=== PATIENT | male | born 2000 | race Caucasian/White ===

== ENCOUNTER 2020-07-05 21:00 | Emergency (ER) | payer OTHER ==
[~2020-07-05] VITALS: Ht 172.7 cm; Wt 95.5 kg
[2020-07-05 21:45] LABS: BASOPHILS % (AUTO) 0.4 % (0.0-2.0); EOSINOPHILS % (AUTO) 1.1 % (1.0-6.0); HEMATOCRIT 44.3 % (41-53); HEMOGLOBIN 14.4 g/dL (13.5-17.5); LYMPHOCYTES # (AUTO) 3.2 K/uL (1.0-4.8); LYMPHOCYTES % (AUTO) 47.2 % (22.0-44.0); MEAN CORPUSCULAR HEMOGLOBIN 29.7 pg (26.0-34.0); MEAN CORPUSCULAR HGB CONC 32.6 G/dL (31.0-37.0); MEAN CORPUSCULAR VOLUME 91 fL (80-100); MONOCYTES # (AUTO) 0.7 K/uL (0.1-1.0); MONOCYTES % (AUTO) 9.6 % (2.0-9.0); NEUTROPHILS # (AUTO) 2.8 K/uL (1.8-7.7); NEUTROPHILS % (AUTO) 41.7 % (40.0-70.0); PLATELET COUNT (AUTO) 271 K/uL (150-450); RED BLOOD CELL COUNT(AUTO) 4.86 MIL/uL (4.50-5.90); RED CELL DISTRIBUTION WIDTH 15.1 % (11.5-14.5)
[2020-07-05 22:02] LABS: ANION GAP 9 mmol/L (8-16); CALCIUM, TOTAL 9.3 mg/dL (8.8-10.5); CARBON DIOXIDE 29 mmol/L (22-29); CHLORIDE 105 mmol/L (98-107); CREATININE 0.96 mg/dL (0.60-1.30); GLOMERULAR FILTR. RATE CALC > 60 mL/min (>60); GLUCOSE,RANDOM 95 mg/dL (70-110); POTASSIUM 3.6 mmol/L (3.5-5.1); SODIUM SERUM 143 mmol/L (136-145); UREA NITROGEN, BLOOD 7 mg/dL (7-18)
[2020-07-05 22:08] LABS: ALANINE AMINOTRANSFERASE 38 U/L (12-78); ALBUMIN 4.5 g/dL (3.4-5.0); ALKALINE PHOSPHATASE 87 U/L (46-116); ASPARTATE AMINOTRANSFERASE 31 U/L (15-37); BILIRUBIN,TOTAL 0.4 mg/dL (0.1-1.0); LIPASE 117 U/L (73-393); TOTAL PROTEIN, SERUM 8.4 g/dL (6.4-8.2)
[2020-07-05 22:22] LABS: APPEARANCE,URINE CLEAR (CLEAR); BILIRUBIN,URINE NEGATIVE (NEGATIVE); GLUCOSE, URINE (UA) NEGATIVE (NEGATIVE); KETONES,URINE TRACE mg/dL (NEGATIVE); LEUKOCYTE ESTERASE ,URINE NEGATIVE (NEGATIVE); NITRATE,URINE NEGATIVE (NEGATIVE); OCCULT BLOOD,URINE NEGATIVE (NEGATIVE); PROTEIN,URINE NEGATIVE (NEGATIVE)
[2020-07-05] MEDS ORDERED: CeFAZolin 2 GM/DEXTROSE 50 ML IV ONE (23:15)
[2020-07-06 00:18] VITALS: BP 128/72
== END 2020-07-06 00:23 | disposition home or self-care (01) ==
LOC: EMS 21:01
DX: R10.32 Left lower quadrant pain (principal); I10 Essential (primary) hypertension
CPT/HCPCS: J0690